=== PATIENT | female | born 1950 | race Caucasian/White ===

== ENCOUNTER → 2017-03-02 | Outpatient (CLI) | payer OTHER | LOC: FIMAGING 07:57 | PROVIDERS: ATTEND Internal Medicine | DX: Z12.31 Encounter for screening mammogram for malignant neoplasm of breast (principal); Z85.3 Personal history of malignant neoplasm of breast | CPT/HCPCS: G0202-52 ==

== ENCOUNTER → 2018-03-30 | Outpatient (CLI) | payer OTHER | LOC: FIMAGING 14:27 | PROVIDERS: ATTEND Orthopaedic Surgery | DX: M16.12 Unilateral primary osteoarthritis, left hip (principal); M17.12 Unilateral primary osteoarthritis, left knee ==

== ENCOUNTER → 2018-04-03 | Outpatient (CLI) | payer OTHER | LOC: FIMAGING 07:31 | PROVIDERS: ATTEND Internal Medicine | DX: Z12.31 Encounter for screening mammogram for malignant neoplasm of breast (principal) ==

== ENCOUNTER 2018-06-12 05:20 | Inpatient (IN) | payer OTHER ==
--- NOTE | 2018-06-10 21:49 | GHP ---
CURRENT COMPLAINT: Bilateral knee pain. HISTORY OF PRESENT ILLNESS: The patient is a 68-year-old female, with a several year history of bila teral knee pain worsening with use over time despite multiple conservative measures. She wishes to u ndergo surgery in order to resolve the problem. ALLERGIES: She has no prior allergies. CURRENT MEDICATIONS: Include carvedilol, estradiol, levothyroxine, tramadol. PAST MEDICAL HISTORY: Prior medical problems include cancer, heart problems, osteopenia, and thyroid issues. PRIOR SURGERIES: Include a left shoulder, left knee, and a mastectomy. SOCIAL HISTORY: She has never been a smoker. She is a social drinker. PHYSICAL EXAMINATION: HEENT: Pupils equal, round, and reactive to light. CHEST: Clear to ausculta tion. HEART: Regular rate and rhythm. ABDOMEN: Soft and nontender. EXTREMITIES: Bilateral knees reveal osteoarthritic spurring, particularly the medial compartments. IMAGING DATA: Radiological studies reveal severe osteoarthritic changes within bilateral knees. ASSESSMENT AND PLAN: Patient is status post bilateral knee osteoarthritis. PLAN: We will take her to the operating room to undergo bilateral total knee replacements. /[id number]/MODL
[2018-06-12] MEDS ORDERED: TRANEXAMIC ACID 3,000 MG in NS (SYRINGE) 50 ML IRR ONE (06:00)
[2018-06-12] MEDS ORDERED: ROPIVACAINE 0.2% 80 MG, EPINEPHrine 0.2 MG, KETOROLAC TROMETHAMINE 30 MG, morphINE 10 M... IU ONE (06:00)
[2018-06-12] MEDS ORDERED: ceFAZolin 2 GM/DEXTROSE 100 ML IV ONE (06:46)
[2018-06-12] MEDS ORDERED: ACETAMINOPHEN 500 MG TAB PO ONE (06:46)
[2018-06-12] MEDS ORDERED: PREGABALIN 150 MG CAP PO ONE (06:46)
[2018-06-12] MEDS ORDERED: LR 1,000 ML IV ONE (06:47)
[2018-06-12] MEDS ORDERED: fentaNYL 250 MCG/5 ML INJ ONE (06:49)
[2018-06-12] MEDS ORDERED: PROPOFOL/EMULSION 500 MG/50 ML BOTTLE IV ONE (06:50)
[2018-06-12] MEDS ORDERED: TRANEXAMIC ACID 3,000 MG/50 ML BAG IRR ONE (06:50)
[2018-06-12] MEDS ORDERED: POLYMYXIN B SULFATE 500,000 UNIT/10 ML SYR IRR ONE (06:50)
[2018-06-12] MEDS ORDERED: BACITRACIN 50,000 UNITS/10 ML SYR IRR ONE (06:51)
[2018-06-12] MEDS ORDERED: BUPIVACAINE/EPI 0.5% 30 ML SDV ONE (06:57)
[2018-06-12] MEDS ORDERED: BUPIVACAINE 0.5% 30 ML SDV ONE (06:58)
--- NOTE | 2018-06-12 07:10 | PDANEPAE ---
ANE History of Present Illness 68year old female for Bilateral Knee Arthroplasty. History of breast cancer and cardiomyopathy. ANE Past Medical History - Cardiovascular History Hx Hypertension: No Hx Arrhythmias: No Hx Chest Pain: No Hx Coronary Artery / Peripheral Vascular Disease: No Hx CHF / Valvular Disease: No Hx Palpitations: No Cardiovascular History Comment: has occasional PVC's. cardiomyopathy r/t chemo - Pulmonary History Hx COPD: No Hx Asthma/Reactive Airway Disease: No Hx Recent Upper Respiratory Infection: No Hx Oxygen in Use at Home: No Hx Sleep Apnea: No Sleep Apnea Screening Result - Last Documented: Negative Pulmonary History Comment: states gets asthma symptoms when she has a cold - Neurologic History Hx Cerebrovascular Accident: No Hx Seizures: No Hx Dementia: No - Endocrine History Hx Diabetes: No Endocrine History Comment: hypothyroid - Renal History Hx Renal Disorders: No Renal History Comment: frequency - Liver History Hx Hepatic Disorders: No - Neurological & Psychiatric Hx Hx Neurological and Psychiatric Disorders: No - Cancer History Hx Cancer: Yes Cancer History Comment: breast CA - Congenital Disorder History Hx Congenital Disorders: No - GI History Hx Gastrointestinal Disorders: No Gastrointestinal History Comment: states recently she gets intermittent indigestion - Other Health History Other Health History: wears glasses for driving - Chronic Pain History Chronic Pain: Yes (bialteral knees) - Surgical History Prior Surgeries: bilat foot surgery, 2018. left shoulder arthroscopy, 2016. right mastectomy, 2004. bilateral breast reconstruction. vaginal sling 2012. right knee scope ANE Review of Systems Review of systems is: negative Review of Systems: - Exercise capacity METS (RN): 4 METS ANE Patient History - Allergies Allergies/Adverse Reactions: No Known Allergies Allergy (Verified 05/29/18 10:50) - Home Medications Home Medications: Carvedilol Phosphate [Carvedilol ER] 40 mg PO HS 05/24/18 [Last Taken 06/11/18] Herbals/Supplements -Info Only 1 ea PO DAILY 05/24/18 [Last Taken 06/12/18] Levothyroxine [Synthroid 75 mcg (*)] 75 mcg PO DAILY06 05/24/18 [Last Taken ] Multivitamins [Multivitamin (*)] 1 each PO DAILY 05/24/18 [Last Taken 06/05/18] - NPO status NPO Since - Liquids (Date): 06/12/18 NPO Since - Liquids (Time): 02:45 NPO Since - Solids (Date): 06/11/18 NPO Since - Solids (Time): 20:30 - Smoking Hx Smoking Status: Never smoked - Family Anes Hx Family Hx Anesthesia Complications: none ANE Labs/Vital Signs - Vital Signs Blood Pressure: 104/73 Heart Rate: 61 Respiratory Rate: 16 O2 Sat (%): 96 Height: 172.72 cm Weight: 99.79 kg ANE Physical Exam - Airway Neck exam: FROM Mallampati Score: Class 2 Mouth exam: normal dental/mouth exam - Pulmonary Pulmonary: no respiratory distress - Cardiovascular Cardiovascular: regular rate and rhythym - ASA Status ASA Status: II ANE Anesthesia Plan Anesthesia Plan: spinal
--- NOTE | 2018-06-12 07:11 | PDHPUP ---
History & Physical Update H&P update statement: This history and physical update is based on an assessment of the patient which was completed after admission or registration (within 24 hours), but prior to the surgery/procedure. H&P update: H&P reviewed & patient examined, no change in patient's condition since H&P completed
[2018-06-12] MEDS ORDERED: CALCIUM CHLORIDE 1 GM/10 ML INJ ONE (07:28)
[2018-06-12] MEDS ORDERED: THROMBIN (BOVINE) 5,000 UNIT VIAL TP ONE (07:28)
[2018-06-12] MEDS ORDERED: LR 500 ML IV PRN (08:09)
[2018-06-12] MEDS ORDERED: ALBUTEROL 3 ML DEYVIAL IH PRN (08:09)
[2018-06-12] MEDS ORDERED: DEXAMETHASONE 4 MG/ML VIAL IVP PRN (08:09)
[2018-06-12] MEDS ORDERED: ONDANSETRON 4 MG/2 ML VIAL IVP PRN ×2 (08:09→10:52)
[2018-06-12] MEDS ORDERED: MEPERIDINE 25 MG/0.5 ML AMP IVP PRN (08:09)
[2018-06-12] MEDS ORDERED: oxyCODONE IR 5 MG TAB PO PRN ×2 (08:09→10:52)
[2018-06-12] MEDS ORDERED: fentaNYL 100 MCG/2 ML INJ IVP PRN (08:09)
[2018-06-12] MEDS ORDERED: DIAZEPAM 5 MG/ML 1 ML SYR IVP PRN (08:09)
[2018-06-12] MEDS ORDERED: HYDROmorphONE/DILAUDID 2 MG/ML INJ IVP PRN (08:09)
[2018-06-12] MEDS ORDERED: LABETALOL HCL 5 MG/ML 20 ML MDV IVP PRN (08:09)
[2018-06-12] MEDS ORDERED: NALOXONE HCL 0.4 MG/ML INJ IVP PRN (08:09)
[2018-06-12] MEDS: BUPIVACAINE/EPI 0.5% 30 ML SDV ONE ×2 (10:20→10:55)
[2018-06-12] MEDS ORDERED: BISACODYL 10 MG SUPP PR PRN (10:52)
[2018-06-12] MEDS ORDERED: LACTULOSE 20 GM/30 ML UDCUP PO PRN (10:52)
[2018-06-12] MEDS ORDERED: diphenhydrAMINE 25 MG CAP PO PRN (10:52)
[2018-06-12] MEDS ORDERED: TAPENTADOL HCL 50 MG TAB PO PRN (10:52)
[2018-06-12] MEDS ORDERED: ONDANSETRON DISINTEGRATING 4 MG TAB PO PRN (10:52)
[2018-06-12] MEDS ORDERED: DIPHENOXYLATE/ATROPINE LOMOTIL 1 TAB PO PRN (10:52)
[2018-06-12] MEDS ORDERED: TEMAZEPAM 15 MG CAP PO PRN (10:52)
[2018-06-12] MEDS ORDERED: METOCLOPRAMIDE 10 MG/2 ML VIAL IVP PRN (10:52)
[2018-06-12] MEDS ORDERED: CYCLOBENZAPRINE 10 MG TAB PO PRN (10:52)
[2018-06-12] MEDS ORDERED: MAGNESIUM HYDROXIDE 30 ML UDCUP PO PRN (10:52)
[2018-06-12] MEDS ORDERED: PROMETHAZINE HCL 25 MG/ML INJ IVP PRN (10:52)
[2018-06-12] MEDS ORDERED: PROMETHAZINE HCL 25 MG SUPPR PR PRN (10:52)
[2018-06-12] MEDS ORDERED: POLYETHYLENE GLYCOL 3350 17 GM PKT PO PRN (10:52)
--- NOTE | 2018-06-12 10:52 | POSTOPPROG ---
Post Op Note Date of Operation: 06/12/18 Surgeon: Dori Nunez Supervisor Pole Yard: amanda Anesthesia: Epidural, IV Sedation Pre-op Diagnosis: b knee oa Procedure: b tkr Inf/Abcess present in the surg proc area at time of surgery?: No Depth: Deep Incisional (Fascial) EBL: 100-500
[2018-06-12] MEDS ORDERED: LR 1,000 ML IV SCH (11:00)
--- NOTE | 2018-06-12 11:15 | PDMN ---
Medical Necessity Medical necessity: MCG: S700 knee arthroplasty INPT for > 65 yrs bilateral TKA, pt with PMH of CA( previous mastectomy) , heart issues, osteopenia, thyroid issues,
--- NOTE | 2018-06-12 11:33 | POSTANESTH ---
Post Anesthetic Evaluation Cardiovascular Status: Normal, Stable Respiratory Status: Normal, Stable Level of Consciousness/Mental Status: Can Participate in Eval Pain Control: Adequate, Prn Tx Ordered Nausea/Vomiting Control: Adequate, Prn Tx Ordered Complications Possibly Related to Anesthesia: None Noted (Bilateral adductor canal block done in PACU. Sterile technique. Bupivicaine .5% 15 cc on each side. Ultrasound pics saved to chart. No complications.)
--- NOTE | 2018-06-12 12:26 | GOP ---
DATE OF OPERATION: 06/12/2018 SURGEON: Dori Nunez MD [employer] OPERATOR: None. ANESTHESIA: Epidural plus IV sedation. PREOPERATIVE DIAGNOSIS: Bilateral knee osteoarthritis. POSTOPERATIVE DIAGNOSIS: Bilateral knee osteoarthritis. PROCEDURE PERFORMED: Bilateral total knee arthroplasties. FINDINGS: INDICATIONS: This is a 68-year-old female with a several year history of bilateral knee pain worseni ng with use with time despite multiple conservative measures. She wishes to have surgery in order to resolve the problem. DESCRIPTION OF PROCEDURE: Patient brought to the operating room. After both sides had been identifi ed as correct side by the patient, nurse, and physician. Once in the operating room she was given an epidural nerve block and then placed supine on the operating table. Given IV sedation. Tourniquets were placed on the upper portion of both thighs and both lower extremities were sterilely prepped an d draped in usual fashion using GSI solution. Once prepped and draped, the left leg was exsanguinate d and tourniquet inflated to 250 mmHg. Linear incision was made on the anterior portion of the knee 1 handbreadth above and below the patella with sharp dissection carried down through the skin and sub cutaneous layers with bleeding controlled using electrocautery. A medial parapatellar incision was m singh through the extensor mechanism, with the patella brought to the side but not everted. The ACL as well as the medial and lateral meniscus were removed. The knee was brought up to 90 degrees of flex ion. A conformist custom made jig was put on the distal end of the femur, drill holes were made at w hich point, the distal femur cutting jig was put into place and pinned into place. Once the tendon l ocked the oscillating saw was used to cut the distal cut surface of the femur. Once completed the pi n holes that had been previously drilled into the distal end of the femur had pins replaced into them and the 3-in-1 cutting block was put into place. It was locked into place using headed s crews. The anterior, anterior chamfer and posterior cuts were made as well as the lug holes. This j ig was then removed as well as the bone that had been cut and the 3rd jig was put into place in order to make the posterior chamfer cut. Once completed, the femoral trial was put into place, noted to a chieve near full extension. The trial was removed. The knee was brought to full flexion. The tibia was subluxed anteriorly and the tibial cutting guide was put into place. Once it was noted where th e feet of the jig were going to be placed, a ring curette was used to remove the cartilage from the b one once achieving access onto the cortical bone. The jig was put back into place and noted to have good alignment and was therefore pinned into place. An oscillating saw was used to remove the proxim al portion of the tibia. Femoral trial and tibial trial put into place and noted to have full extens ion, suggesting an adequate amount of bone had been removed. Therefore, the trials were removed. Ti bial trial was put back into place, set into a proper rotation, was pinned into place and the intrame dullary drill as well as the keel punch was passed through the trial. The trial was then removed. T he knee was brought to full extension. Attention was turned to the patella which was everted at that time. Held in place with towel clips. It was measured to be 24 mm in thickness. Oscillating saw was used to remove the posterior portion of the patella, leaving 15 mm of bone. Multiple sizes were trialed onto the patella and noted a 35 m m patella button seemed to fit best. Therefore, lug holes were drilled for the patellar button and t he trial was noted to fit securely. All cut surfaces of bone were then thoroughly irrigated with ant ibiotic solution using pulsatile lavage while cement was being mixed. Once cement was doughy, was pl aced on the proximal end of the tibia with a custom made conformist tibial component put into place a nd excess cement removed using Yolyn elevator. Cement was then placed on the posterior skids of the femoral component with cement placed on the distal anterior portion of the femur and a custom-made cr uciate retaining right conformist component was put into place onto the femur with excess cement chiara shweta using Yolyn elevator. Trial liners were placed in the tibial tray. The knee was brought to full extension in order to pressurize cement. The cement was then placed on the cut surface of the kamara la with a 35 mm patellar button put into place and excess cement removed using Yolyn elevator. Joint cocktail was injected into the posterior capsule along the periosteum of the femur, the tibia and th e extensor mechanism. Tranexamic acid was irrigated into the wound waiting for the cement to harden. Once the cement had hardened trials were tested in terms of stability to varus valgus stresses and to range of motion, noted to fit well. Therefore any excess cement that was found was removed using combination of rongeur and osteotome and a size A lateral polyethylene component was put into place a s well as a 6 mm medial polyethylene component was put into place, noted to fit securely. The tourni quet was released at 51 minute. Bleeding was controlled using electrocautery. 0 Vicryl suture was u sed to close the extensor mechanism, with plasma gel placed intra-articularly. 0 Vicryl and 2-0 Vicr yl suture for the subcutaneous layers with plasma gel placed external to the extensor mechanism, and a 3-0 V-Loc suture in a running subcuticular stitch for the skin. Attention was then turned to the l eft knee which was exsanguinated. Tourniquet inflated to 250 mmHg. A linear incision was made on th e anterior portion of the knee 1 handbreadth above and below the patella with sharp dissection nishant d down through the skin and subcutaneous layers with bleeding controlled using electrocautery. A med ial parapatellar incision made through the extensor mechanism, with the patella everted. The ACL as well as the medial and lateral meniscus were removed gaining access onto the knee. The knee was brou ght to 90 degrees of flexion. The 1st jig was placed on the end surface of the femur. Was noted to be securely in position lug holes were drilled. The 2nd jig was then put into place with pin holes p laced in the distal femur and the end cutting block pinned into place. The jig was then removed. An oscillating saw was used to remove the distal portion of the femur. Pins were replaced into the dis eliud femur and the 3-in-1 cutting block was put into place, held in place with threaded headed screws and the anterior, anterior chamfer and posterior cuts were made. The guide was removed. Lug holes w ere drilled into the distal femur. The 3rd jig was put into place and the posterior chamfer cuts wer e made. The femoral trial was put in place and noted to fit securely. The leg was able to nearly ac hieve full extension. The trial was then removed. The tibial jig was put into place where the feet touch the tibia and once this was noted a ring curette was used to remove the achieving co rtical bone. The jig was then put back into place noted to be in good alignment. It was then pinned into place. An oscillating saw was used to remove the proximal portion of the tibia. Femoral trial and tibial trial were put in place. The knee was able to achieve full extension, suggesting an adeq uate amount of bone had been removed. Knee was brought through range of motion. The rotation of the tibial component was marked. The trials were then removed. Tibia subluxed anteriorly with maximal flexion. The tibial trial was put back into place, set in proper rotation, pinned into place and the intramedullary drill as well as keel punch was passed through the guide. The trial was then removed . The leg was brought to full extension. The patella was then everted. It measured to be 24 mm in depth. The oscillating saw was used to cut the posterior portion of the patella, leaving 14 mm of rosalba ne. Several trials were placed on the cut surface of the patella and noted a 35 mm patella fit best. Therefore, lug holes were drilled for the patellar component. All cut surfaces of bone were then t horoughly irrigated with an antibiotic solution using pulsatile lavage while cement was being mixed. Once cement was doughy, it was placed on the proximal portion of the tibia and a custom-made conform ist tibial component was put into place and excess cement removed using Yolyn elevators. Cement was then placed on the posterior skids of the femoral component as well as the anterior and distal portio n of the femur with a custom-made cruciate retaining left conformist femoral implant put in place and excess cement removed using Yolyn elevator. Trial liners were placed in the tibial tray. The knee was brought to full extension in order to pressurize cement. Cement was then placed on the cut surfa ce of the patella with a 35 mm patellar button put into place and excess cement removed using Yolyn e levator. The joint cocktail was then injected into the posterior capsule, the periosteum of the femu r, tibia as well as extensor mechanism, and tranexamic acid was irrigated through the wound. Once th e cement had hardened, the knee was placed through range of motion and tested for stability at which point an A lateral tibial insert was placed in the tibial tray and a 6 mm medial polyethylene insert was placed in the tibial tray. Once locked into place tourniquet was deflated at 74 minutes. Bleedi ng was controlled using electrocautery. The extensor mechanism was closed using 0 Vicryl suture in a inhtwd-ev-sliog type stitch with plasma gel placed intra-articularly. 0 Vicryl and 2-0 Vicryl sutur e used for the subcutaneous layers with plasma gel placed external to the extensor mechanism, and a 3 -0 V-Loc suture in a running subcuticular stitch used for the skin. Both wounds were then dressed wi th Steri-Strips, Xeroform, 4 x 4, wrapped in Kerlix. Legs were completely undraped in the operating room, tourniquet removed from the thighs and Diallo wraps placed around each knee. The patient was then transferred onto a stretcher, and sent to recovery room in good condition. CO-SURGEONS: Dori Nunez MD and Marcio Solano MD. TOURNIQUET TIME: 51 minutes on the right. 71 minutes on the left. /[id number]/MODL
[2018-06-12] MEDS: ceFAZolin 2 GM/DEXTROSE 100 ML IV SCH ×2 (14:04→21:44)
[2018-06-12] MEDS: ACETAMINOPHEN 325 MG TAB PO SCH ×5 (14:17→23:46)
[2018-06-12] MEDS: traMADol 50 MG TAB PO SCH ×3 (14:18→23:49)
[2018-06-12] MEDS: KETOROLAC 15 MG/1 ML SDV IVP SCH ×5 (14:18→23:49)
[2018-06-12] MEDS ORDERED: CARVEDILOL CR 40 MG CAP PO SCH (21:00)
[2018-06-12] MEDS: SENNOSIDES/DOCUSATE SODIUM TAB PO SCH (21:49)
[2018-06-12] MEDS: FAMOTIDINE 20 MG TAB PO SCH (21:49)
[2018-06-13] MEDS: KETOROLAC 15 MG/1 ML SDV IVP SCH (05:10)
[2018-06-13] MEDS: ACETAMINOPHEN 325 MG TAB PO SCH ×2 (05:18→11:36)
[2018-06-13] MEDS: traMADol 50 MG TAB PO SCH ×2 (05:19→11:23)
[2018-06-13] MEDS ORDERED: LEVOTHYROXINE 75 MCG TAB PO SCH (06:00)
[2018-06-13 07:50] VITALS: BP 109/57
[2018-06-13] MEDS: FAMOTIDINE 20 MG TAB PO SCH (08:00)
[2018-06-13] MEDS: SENNOSIDES/DOCUSATE SODIUM TAB PO SCH (08:06)
[2018-06-13] MEDS ORDERED: RIVAROXABAN 10 MG TAB PO SCH (09:30)
--- NOTE | 2018-06-13 09:39 | SOAPPROG ---
SOAP Progress Note Assessment/Plan: Assessment:PT is POD#1 s/p BTKA and is doing very well. Plan: 06/13/18 09:38 Objective: Vital Signs Temp Pulse Resp BP Pulse Ox 36.5 C 55 L 16 109/57 L 93 06/13/18 07:49 06/13/18 07:49 06/13/18 07:49 06/13/18 07:49 06/13/18 07:49 Laboratory Results 06/13/18 04:42 06/12/18 06/13/18 06/14/18 05:59 05:59 05:59 Intake Total 3785 Output Total 1200 Balance 2585
--- NOTE | 2018-06-13 09:39 | PDIAF ---
- Diagnosis Diagnosis: Bilateral knee ostoearthritis Code Status: Full Code - Medication Management Discharge Medications: electronically signed and located in the Home Medication List. - Orders Services needed: Physical Therapy Diet Recommendation: no restrictions on diet Diet Texture: Regular Texture Diet Additional Instructions: WBAT. Xarelto x 10 days post op. Pt has prescriptions. Patient will follow up in office in 7-10 days for repeat evaluation and wound check. - Follow Up Care Current Providers and Referrals: Domenica Solis MD [Primary Care Provider] -
--- NOTE | 2018-06-13 10:52 | ASMTCMCOM ---
CM Note CM Note Notes: Met with patient re: discharge plan of care. Patient would like home care and wants to use [facility]. Spoke with Deborah at [facility] who is able to accept for PT. Orders in chart. Discussed with RN. will transport home this afternoon All DME has been purchased. CM available for any further needs. Plan: Home with [facility] PT Date Signed: 06/13/2018 10:51 AM Electronically Signed By:Yovana Miller RN
--- NOTE | 2018-06-13 10:53 | ASMTLACE ---
OLGAE Length of stay for Answers: 1 day current admission Acuity / Level of Answers: Yes Care: Did the patient have an inpatient admission? Comorbidities - select Answers: Opioid dependence all that apply / Chronic pain Other Notes: Hypothyroid # of Emergency department Answers: 0 visits in the last 6 months Score: 9 Date Signed: 06/13/2018 10:52 AM Electronically Signed By:Yovana Miller RN
--- NOTE | 2018-06-13 15:31 | ASDISCHSUM ---
Discharge Information Plan Status:Home with Home Health Medically Cleared to Leave: Discharge Date:06/13/2018 12:25 PM CM D/C Disposition:Home Health Service ADT D/C Disposition:[id number] Projected Discharge Date:06/13/2018 11:00 AM Transportation at D/C:Family Discharge Delay Reason: Follow-Up Date:06/13/2018 11:00 AM Discharge Slot: Final Diagnosis: Placement Information Referral Type:*Home Health Care Services Referral ID:[id number] Provider Name:[facility] Address 1[address] Address 2: City:[place] Selection Factors: State:[place] Patient Contact Information Contact Name:GISELL Relationship:Life Partner Address:[address] City:[place] Alternate Phone: State/Zip Code:[place] [address] Email: Financial Information Financial Class:[employer] [facility] Primary Plan Number:[id number] Secondary Plan Desc: Secondary Plan Number: Assessment Information LACE LACE Length of stay for Answers: 1 day current admission Acuity / Level of Answers: Yes Care: Did the patient have an inpatient admission? Comorbidities - select Answers: Opioid dependence all that apply / Chronic pain Other Notes: Hypothyroid # of Emergency department Answers: 0 visits in the last 6 months Score: 9 Date Signed: 06/13/2018 10:52 AM Electronically Signed By:Yovana Miller RN [facility] CM Progress Note CM Note CM Note Notes: Met with patient re: discharge plan of care. Patient would like home care and wants to use [facility]. Spoke with Deborah at [facility] who is able to accept for PT. Orders in chart. Discussed with RN. will transport home this afternoon All DME has been purchased. CM available for any further needs. Plan: Home with [facility] PT Date Signed: 06/13/2018 10:51 AM Electronically Signed By:Yovana Miller RN Intervention Information
== END 2018-06-13 12:25 | disposition home health service (06) | DRG 462 ==
LOC: F3N 05:20 → OBSVTOIN 05:20 → F3N 12:06
PROVIDERS: ADMIT Orthopaedic Surgery; ATTEND Orthopaedic Surgery
PROC: 0SRD0J9 Replacement of Left Knee Joint with Synthetic Substitute, Cemented, Open Approach (ICD-10-PCS; principal; 2018-06-12 07:15)
PROC: 0SRC0J9 Replacement of Right Knee Joint with Synthetic Substitute, Cemented, Open Approach (ICD-10-PCS; principal; 2018-06-12 07:15)
DX: M17.0 Bilateral primary osteoarthritis of knee (principal); I42.7 Cardiomyopathy due to drug and external agent; T45.1X5A Adverse effect of antineoplastic and immunosuppressive drugs, initial encounter; Z90.11 Acquired absence of right breast and nipple; Z85.3 Personal history of malignant neoplasm of breast
CPT/HCPCS: 97110-GP; 97116-GP; 97161-GP; 97166-GO; 97530-GP; C1713; J0171; J0690; J1885; J2270; J2405; J2704; J2795; J3010